=== PATIENT | female | born 1950 | race Caucasian/White ===

== ENCOUNTER 2016-09-25 10:09 | Emergency (ER) | payer MEDICARE, OTHER ==
[2016-09-25 10:22] VITALS: BP 192/71
--- NOTE | 2016-09-25 12:12 | Ultrasound Report ---
RIGHT LEG VENOUS DUPLEX: 09/25/2016 CLINICAL INDICATION: History of DVT, swelling, pain after stopping Coumadin. TECHNIQUE: Real-time sonographic vascular imaging was performed by the inbound call center agent through the right leg utilizing both color flow and Doppler spectral analysis. Multiple food service sales representatives static images w ere saved for review. FINDINGS: A right lower extremity venous sonogram is performed revealing the common femoral, superfic ial femoral, profunda femoris, and popliteal veins to be adequately visualized without intraluminal d efects. There is normal venous compression, augmentation, phasicity, and spontaneity of venous flow. In the calf, the visualized more cephalad portions of posterior tibial and peroneal veins are grossl y compressible, without filling defects. IMPRESSION: NO EVIDENCE OF DEEP VENOUS THROMBOSIS. JOB #: [id number] EXT JOB #:
--- NOTE | 2016-09-25 13:38 | ED Physician Documentation ---
History of Present Illness - Stated complaint Stated Complaint: R LEG CRAMP - Chief complaint Chief Complaint: Ext Problem - History obtained from History obtained from: Patient - History of Present Illness Timing: Last night - Additonal information Additional information: 66-year-old female took a drive up to [place] yesterday and came back and she developed a intense cramp in her right calf last night she had a second episode during the evening and so she is coming to the emergency department today concerned about DVT. She has had a prior DVT about 5 months ago and she has finished her Coumadin. Review of Systems Constitutional: denies: Fever Ears: denies: Ear pain Nose: denies: Congestion Throat: denies: Sore throat Cardiac: denies: Chest pain / pressure, Palpitations Respiratory: denies: Dyspnea, Cough Musculoskeletal: reports: Extremity pain. 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: Hysterectomy Cardiovascular: Coronary stent - Present Medications Home Medications: Ambulatory Orders Medication Instructions Recorded Confirmed Insulin Glargine [Lantus] 55 unit SUBQ QPM 09/25/16 09/25/16 Insulin Lispro [Humalog] 10 unit PO TID 09/25/16 09/25/16 Lisinopril 20 mg PO DAILY 09/25/16 09/25/16 metFORMIN [Glucophage] 500 mg PO BID 09/25/16 09/25/16 - Allergies Allergies/Adverse Reactions: Allergies Allergy/AdvReac Type Severity Reaction Status Date / Time [id number] Reductase Allergy Unknown Verified 09/25/16 10:23 Inhibitor - Social History Does the pt smoke?: No Smoking Status: Never smoker Does the pt drink ETOH?: No Does the pt have substance abuse?: No - Immunizations Immunizations are current?: Yes - POLST Patient has POLST: No PD ED PE NORMAL - Vitals Vital signs reviewed: Yes (Hypertensive) - General General: No acute distress, Well developed/nourished - HEENT HEENT: Atraumatic, PERRL - Respiratory Respiratory: No respiratory distress - Derm Derm: Normal color, Warm and dry, No rash - Extremities Extremities: No deformity, No edema, No calf tenderness / cord - Neuro Neuro: No motor deficit, No sensory deficit - Psych Psych: Normal mood, Normal affect Results - Vitals Vitals: Vital Signs - 24 hr 09/25/16 10:18 Temperature 35.9 C L Heart Rate 70 Respiratory 14 Rate Blood Pressure 192/71 H O2 Saturation 100 Oxygen O2 Source Room air - Rads (name of study) Lower extremity duplex right Radiology: Prelim report reviewed (Impression: No DVT.), EMP read indepedently, See rad report PD MEDICAL DECISION MAKING - ED course Complexity details: reviewed results, re-evaluated patient, considered differential, d/w patient ED course: 66-year-old female with a prior history of DVT at an intense muscle cramp in her leg yesterday she states that she normally drinks about 8-10 glasses of water per day and is only drank 3 yesterday. I suspect this is the reason for her cramping we discussed dehydration and the patient is thankful she does not have another DVT. Departure - Departure Disposition: 01 Home, Self Care Clinical Impression: Cramp in lower leg Condition: Stable Instructions: ED Muscle Pain Leg Cramps Follow-Up: Your, doctor [Other]
== END 2016-09-25 13:44 | disposition home or self-care (01) ==
LOC: ED 10:09
DX: R25.2 Cramp and spasm (principal); E11.9 Type 2 diabetes mellitus without complications; Z79.4 Long term (current) use of insulin; Z79.84 Long term (current) use of oral hypoglycemic drugs; Z86.718 Personal history of other venous thrombosis and embolism; Z87.442 Personal history of urinary calculi
CPT/HCPCS: 99283